=== PATIENT | female | born 1935 | race Caucasian/White ===

== ENCOUNTER → 2017-08-16 | Outpatient (CLI) | payer MEDICARE, OTHER | END | disposition home or self-care (01) | LOC: GMAH 10:48 | PROVIDERS: ATTEND Family Medicine | DX: E78.2 Mixed hyperlipidemia (principal) ==

== ENCOUNTER → 2017-08-17 | Outpatient (CLI) | payer MEDICARE, OTHER ==
--- NOTE | 2017-08-22 14:55 | MAM ---
EXAM DESCRIPTION: 3D Screening BILATERAL : Digital Mammography. CLINICAL HISTORY: 82 years Female SCREENING . No complaints. No family history breast cancer. No HRT.. COMPARISON: 2-D digital screening bilateral study on 04/03/2013. No prior reports available. TECHNIQUE: Bilateral CC and MLO projection full-field images, 3-D tomosynthesis digital mammographic technique. Also bilateral synthesized CC/ MLO full-field images. CAD not utilized. FINDINGS: The breast parenchymal density pattern is: Scattered areas of fibroglandular density. No skin thickening or nipple retraction bilateral solitary microcalcifications. Intramammary lymph nodes right breast. Retroareolar coarse calcification right breast. No focal, stellate mass or density, focal asymmetry , and no suspicious microcalcifications or laterally. Stable mammograms compared to prior study, taking into account differences in mammographic technique IMPRESSION: BI-RADS CATEGORY: 2 - BENIGN FINDINGS. FOLLOW UP: Routine digital bilateral screening, one year interval from August 2017. Written communication explaining the IMPRESSION and follow-up, will be mailed to the patient and referring health care provider. According to the [employer], yearly mammograms are recommended starting at age 40 and continuing as long as a woman is in good health. Any breast change noted on a breast self-exam should be reported promptly to the patient's healthcare provider. Breast MRI is recommended for women with an approximately 20-25% or greater lifetime risk of breast cancer, including women with a strong family history of breast or ovarian cancer and women who have been treated for Hodgkin's disease. A negative mammographic report should not delay tissue diagnosis in patients with significant clinical history or physical findings. Extremely dense breast tissue limits the sensitivity of digital mammography. Electronically signed by: Girish Hdz MD 08/22/2017 2:54 PM [facility]
== END ==
LOC: MAMMO 10:53
PROVIDERS: ATTEND Family Medicine
DX: Z12.31 Encounter for screening mammogram for malignant neoplasm of breast (principal)
CPT/HCPCS: 77063; G0202

== ENCOUNTER 2017-12-25 12:40 | Emergency (ER) | payer MEDICARE, OTHER ==
[2017-12-25 12:54] VITALS: TEMP 98.2
--- NOTE | 2017-12-25 13:25 | RAD ---
EXAM DESCRIPTION: Chest,2 Views CLINICAL HISTORY: 82 years Female, recurrent cough and sob COMPARISON: August 11, 2007 TECHNIQUE: PA lateral chest FINDINGS: Cardiac silhouette and mediastinum are unchanged. Increased markings have developed at the left base suspicious for pneumonitis. No other changes. IMPRESSION: Left basilar pneumonitis Electronically signed by: Kenneth Hilliard 12/25/2017 1:24 PM CDT
[2017-12-25] MEDS ORDERED: AZITHROMYCIN 250 MG TAB PO ONE (14:16)
[2017-12-25] MEDS ORDERED: predniSONE 20 MG TAB PO ONE (14:16)
--- NOTE | 2017-12-25 14:35 | ED.PDOC ---
History of Present Illness - General Chief Complaint: Respiratory Problem Stated Complaint: cough Time Seen by Provider: 12/25/17 12:45 Source: patient Exam Limitations: no limitations - History of Present Illness Initial Comments: the patient is a 82-year-old female presenting to the emergency room secondary to a coarse rattly cough starting approximately 3-4 days ago. She did have an x-ray and blood work done at the initial start of the symptoms. They were apparently reassuring with her primary care doctor. She was not placed on any medications at that time. Symptoms have progressed since that visit and the patient is coughing frequently with a minimally productive cough. No respiratory distress. No fevers. No real shortness of breath with activity. No runny nose. No sore throat. Chest x-ray done here today shows a questionable small left lower lung and infiltrate. This is compared to a chest x-ray from quite some time ago. Severity: moderate Improving Factors: nothing Worsening Factors: nothing Associated Symptoms: cough Allergies/Adverse Reactions: Allergies Amoxicillin Allergy (Verified 12/25/17 13:01) Ezetimibe [From Zetia] Allergy (Verified 12/25/17 13:01) Gentamicin Allergy (Verified 12/25/17 13:01) Ibuprofen [From Motrin] Allergy (Verified 12/25/17 13:01) Lovastatin [From Mevacor] Allergy (Verified 12/25/17 13:01) Povidone Iodine [From Betadine] Allergy (Verified 12/25/17 13:01) Statins Allergy (Verified 12/25/17 13:01) Verapamil Allergy (Verified 12/25/17 13:01) Home Medications: Ambulatory Orders Azithromycin 500 mg PO DAILY #5 tab 12/25/17 Clopidogrel Bisulfate [Plavix] 75 mg PO QD 12/25/17 predniSONE [Prednisone] 20 mg PO DAILY #5 tab 12/25/17 Review of Systems - Review of Systems Constitutional: States: no symptoms reported EENTM: States: no symptoms reported Respiratory: States: cough Cardiology: States: no symptoms reported Gastrointestinal/Abdominal: States: no symptoms reported Genitourinary: States: no symptoms reported Musculoskeletal: States: no symptoms reported Skin: States: no symptoms reported Neurological: States: no symptoms reported Endocrine: States: no symptoms reported All other Systems: No Change from Baseline Past Medical History (General) - Patient Medical History Surgical History: tonsillectomy, Hysterectomy, other - Vaccination History Hx Influenza Vaccination: Yes Hx Pneumococcal Vaccination: No - Social History Hx Tobacco Use: No Hx Alcohol Use: No Hx Substance Use: No Hx Substance Use Treatment: No Hx Depression: No Family Medical History - Family History Mother Family History: Unknown Physical Exam - Physical Exam General Appearance: Alert, Comfortable, No apparent distress Eye Exam: bilateral normal Ears, Nose, Throat: hearing grossly normal, normal ENT inspection Neck: full range of motion, supple Respiratory: no respiratory distress, no accessory muscle use, rhonchi Cardiovascular/Chest: normal peripheral pulses, regular rate, rhythm, no edema Peripheral Pulses: radial,right: 2+, radial,left: 2+, dorsalis pedis,right: 2+, dorsalis pedis,left: 2+ Gastrointestinal/Abdominal: non tender, soft Rectal Exam: deferred Back Exam: normal inspection, no CVA tenderness Extremity: normal range of motion, non-tender, normal inspection 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 the patient will be covered for possible bacterial sources with azithromycin and low-dose prednisone for the next 5 days. She is to follow-up with her primary care doctor later this week. Additionally the patient does report some long- standing hoarseness and chronic cough issues. An ear nose and throat evaluation may be warranted for evaluation of the vocal cords if the symptoms persist. ER warnings were given for any significant worsening. There is no hypoxia or respiratory distress here today. Lab work and chest x-ray otherwise look fairly reassuring. - Results/Orders Results/Orders: chest x-rays above Laboratory Last Values WBC 7.7 K/mm3 (4.8-10.8) 12/25/17 13:28 RBC 4.86 M/mm3 (4.20-5.40) 12/25/17 13:28 Hgb 14.3 gm/dL (12.0-16.0) 12/25/17 13:28 Hct 42.3 % (36.0-47.0) 12/25/17 13:28 MCV 86.9 fl (81.0-99.0) 12/25/17 13:28 MCH 29.4 pg (27.0-31.0) 12/25/17 13:28 MCHC 33.8 g/dL (33.0-37.0) 12/25/17 13:28 RDW 13.2 % (11.5-14.5) 12/25/17 13:28 Plt Count 206 K/mm3 (130-400) 12/25/17 13:28 MPV 7.9 fl (7.40-10.4) 12/25/17 13:28 Absolute Neuts (auto) 4.80 K/uL (1.8-6.8) 12/25/17 13:28 Absolute Lymphs (auto) 1.60 K/uL (1.0-3.4) 12/25/17 13:28 Absolute Monos (auto) 0.90 K/uL (0.2-0.8) H 12/25/17 13:28 Absolute Eos (auto) 0.30 K/uL (0.0-0.4) 12/25/17 13:28 Absolute Basos (auto) 0.10 K/uL (0.0-0.1) 12/25/17 13:28 Neutrophils % 62.4 % (42.0-78.0) 12/25/17 13:28 Lymphocytes % 20.8 % (20.0-50.0) 12/25/17 13:28 Monocytes % 12.2 % (2.0-9.0) H 12/25/17 13:28 Eosinophils % 3.3 % (1.0-5.0) 12/25/17 13:28 Basophils % 1.3 % (0.0-2.0) 12/25/17 13:28 D-Dimer, Quantitative < 230 ng/mL (0-230) 12/25/17 13:28 Sodium 133 mmol/L (135-145) L 12/25/17 13:28 Potassium 4.1 mmol/L (3.6-5.0) 12/25/17 13:28 Chloride 96 mmol/L (101-111) L 12/25/17 13:28 Carbon Dioxide 28 mmol/L (21-31) 12/25/17 13:28 Anion Gap 13.1 (12-18) 12/25/17 13:28 BUN 8 mg/dL (7-18) 12/25/17 13:28 Creatinine 0.54 mg/dL (0.6-1.3) L 12/25/17 13:28 BUN/Creatinine Ratio 14.8 (10-20) 12/25/17 13:28 Random Glucose 104 mg/dL (70-105) 12/25/17 13:28 Serum Osmolality 265.0 mOsm/L (275-295) L 12/25/17 13:28 Calcium 9.5 mg/dL (8.4-10.2) 12/25/17 13:28 Total Bilirubin 0.8 mg/dL (0.2-1.0) 12/25/17 13:28 AST 24 IU/L (10-42) 12/25/17 13:28 ALT 14 IU/L (10-60) 12/25/17 13:28 Alkaline Phosphatase 69 IU/L (42-121) 12/25/17 13:28 Creatine Kinase 146 IU/L (26-140) H 12/25/17 13:28 CK-MB (CK-2) 3.2 ng/mL (0.0-4.4) 12/25/17 13:28 CK-MB (CK-2) % Not Reportable 12/25/17 13:28 Troponin I < 0.02 ng/mL (0.01-0.05) 12/25/17 13:28 B-Natriuretic Peptide 30.0 pg/ml (0-100) 12/25/17 13:28 Serum Total Protein 7.8 gm/dL (6.4-8.2) 12/25/17 13:28 Albumin 4.3 g/dl (3.2-5.5) 12/25/17 13:28 Globulin 3.5 gm/dL (2.3-3.5) 12/25/17 13:28 Albumin/Globulin Ratio 1.2 (1.1-1.9) 12/25/17 13:28 Departure - Departure Clinical Impression: Acute bronchitis Qualifiers: Bronchitis organism: unspecified organism Qualified Code(s): J20.9 - Acute bronchitis, unspecified Disposition: Discharge to Home or Self Care Condition: Fair Departure Forms: ED Discharge - Pt. Copy, Patient Portal Self Enrollment Instructions: DI for Acute Bronchitis Diet: regular diet Activity: increase activity as tolerated Referrals: James Ann MD [Primary Care Provider] - 1-5 Days Prescriptions: Azithromycin 500 mg PO DAILY #5 tab predniSONE [Prednisone] 20 mg PO DAILY #5 tab Home Medications: Ambulatory Orders Azithromycin 500 mg PO DAILY #5 tab 12/25/17 Clopidogrel Bisulfate [Plavix] 75 mg PO QD 12/25/17 predniSONE [Prednisone] 20 mg PO DAILY #5 tab 12/25/17 Additional Instructions: the patient is an 82-year-old female presenting to the emergency room with what appears to be an acute bronchitis of uncertain origin. the patient will be covered for possible bacterial sources with azithromycin and low-dose prednisone for the next 5 days. She is to follow-up with her primary care doctor later this week. Additionally the patient does report some long- standing hoarseness and chronic cough issues. An ear nose and throat evaluation may be warranted for evaluation of the vocal cords if the symptoms persist. ER warnings were given for any significant worsening. There is no hypoxia or respiratory distress here today. Lab work and chest x-ray otherwise look fairly reassuring.
[2017-12-25 14:50] VITALS: BP 156/92; O2SAT 98
== END 2017-12-25 14:50 | disposition home or self-care (01) ==
LOC: ER 12:40
DX: J20.9 Acute bronchitis, unspecified (principal)
CPT/HCPCS: 36415; 71046; 80053; 82550; 82553; 83880; 84484; 85025; 85379; J7512; Q0144

== ENCOUNTER → 2018-08-21 | Outpatient (CLI) | payer MEDICARE, OTHER | LOC: GMAH 11:12 | PROVIDERS: ATTEND Family Medicine | DX: I10 Essential (primary) hypertension (principal); E78.2 Mixed hyperlipidemia ==

== ENCOUNTER → 2019-03-01 | Outpatient (CLI) | payer MEDICARE, OTHER ==
--- NOTE | 2019-03-01 11:01 | US ---
US HEAD NECK SOFT TISSUE CLINICAL STATEMENT: Thyroid nodule. No complaints. No prior thyroid surgery or therapy. COMPARISON: None TECHNIQUE: Transcutaneous scanning, grayscale and Doppler modes. FINDINGS: Size right thyroid lobe: 4.2 x 1.9 x 1.8 cm Size left thyroid lobe: 4.2 x 1.5 x 1.3 cm Size isthmus: 0.26 cm Estimated total number of nodules greater than or equal to 1 cm: 2 Nodule 1: Size: 1.1 x 1.3 x 0.8 cm Location: Right Mid Composition: cystic or completely cystic: 0 points Echogenicity: anechoic: 0 points Shape: taller than wide: 3 points Margins: smooth: 0 points Echogenic foci: none: 0 points ACR Total Points: 3; ACR TI-RADS risk category: TR3 - mildly suspicious nodule. Nodule 2: Size: 1.0 x 1.0 x 0.4 cm Location: Isthmus Mid Composition: solid or almost completely solid: 2 points Echogenicity: hypoechoic: 2 points Shape: wider than tall: 0 points Margins: smooth: 0 points Echogenic foci: none: 0 points ACR Total Points: 4; ACR TI-RADS risk category: TR4 - moderately suspicious nodule. Nodule 3: Size: 0.9 x 0.7 x 0.6 cm Location: Left Upper Composition: cystic or completely cystic: 0 points Echogenicity: hypoechoic: 2 points Shape: wider than tall: 0 points Margins: smooth: 0 points Echogenic foci: none: 0 points ACR Total Points: 2; ACR TI-RADS risk category: TR2 - nonsuspicious nodule. Nodule 4: Size: 0.7 x 0.6 x 0.4 cm Location: Right Mid Composition: solid or almost completely solid: 2 points Echogenicity: hypoechoic: 2 points Shape: wider than tall: 0 points Margins: smooth: 0 points Echogenic foci: large comet tail artefact: 0 points ACR Total Points: 4; ACR TI-RADS risk category: TR4 - moderately suspicious nodule. The soft tissue around the thyroid gland shows no evidence of dominant solid mass or distinct cyst. No parenchymal edema or large calcifications. No overlying skin changes. Normal vascularity. IMPRESSION: 1. Nodule 1: ACR TI-RADS 2017 Category TR3. Recommend: No further follow-up.. Recommendations based upon [employer] Best Practice recommendations and ACR TI-RADS 2017 guidelines. Please see below*. 2. Nodule 2: ACR TI-RADS 2017 Category TR4. Recommend: Follow-up ultrasound in 1 year. 3. Nodule 3: ACR TI-RADS 2017 Category TR2. Recommend: No further follow-up. 4. Nodule 4: ACR TI-RADS 2017 Category TR4. Recommend: No further follow-up. Soft tissue around the thyroid gland is unremarkable. *ACR TI-RADS 2017 Recommendations: TR1: No FNA or follow up TR2: No FNA or follow up TR3: FNA if >/= 2.5 cm, follow up if 1.5 - 2.4 cm in 1, 3, and 5 years TR4: FNA if >/= 1.5 cm, follow up if 1.0 - 1.4 cm in 1, 2, 3, and 5 years TR5: FNA if >/= 1.0 cm, follow up if 0.5 - 0.9 cm every year for 5 years ACR TI-RADS recommends that no more than two nodules with the highest ACR TI-RADS total point should be biopsied and no more than four nodules should be followed. These recommendations do not apply to patients with increased risk for thyroid cancer or patients with symptomatic thyroid disease. Electronically signed by: Girish Hdz MD 03/01/2019 10:59 AM CDT
== END ==
LOC: US 09:00
PROVIDERS: ATTEND Family Medicine
DX: E04.2 Nontoxic multinodular goiter (principal)

== ENCOUNTER → 2020-05-19 | Outpatient (CLI) | payer MEDICARE, OTHER | LOC: GMA MATASK 16:43 | PROVIDERS: ATTEND Family Medicine | DX: I10 Essential (primary) hypertension (principal) ==

== ENCOUNTER → 2020-08-06 | Outpatient (CLI) | payer MEDICARE, OTHER | LOC: GMA MATASK 14:34 | PROVIDERS: ATTEND Family Medicine | DX: R30.0 Dysuria (principal) ==

== ENCOUNTER → 2020-08-20 | Outpatient (CLI) | payer MEDICARE, OTHER ==
--- NOTE | 2020-08-21 07:38 | US ---
EXAM DESCRIPTION: Gall Bladder: ULTRASOUND. CLINICAL HISTORY: RUQ ABD PAIN GALLSTONES COMPARISON: None. TECHNIQUE: Transabdominal scanning: Shannon-scale and Doppler modes. FINDINGS: Gallbladder: Normal size without focal wall thickening ranging from 5.1 to 8.1 mm. Large echogenic stone with acoustic shadowing measuring 2 cm. No fluid around the gallbladder. Borderline diffuse wall thickening 3.0 mm Non-tender with transducer pressure. Common bile duct: caliber 4.8 mm within normal limits. Liver: normal echogenicity; contour liver capsule smooth where seen. No fluid around the liver. Intrahepatic biliary ducts normal caliber. Doppler hepatopedal flow portal vein.. 7.2 mm normal caliber portal vein. Long axis right lobe 14.4 cm. Pancreas: normal size Normal echogenicity. Duct not seen. Aorta: 1.8 cm normal caliber. Right kidney: long axis is 9.8 cm.; volume 110.5. [place]. Cortical thickness 11 mm. Physiologic cortical echogenicity. Endoleak complex appearing cyst in the lower pole with internal echogenic septa and contents. Peripheral vascularity. Dimensions 6.1 x 5.0 x 4.6 cm. IMPRESSION: 1. Multiple polyps in the gallbladder with sludge and 2.1 cm stone. Borderline wall thickening. Nontender with transducer pressure. Common bile duct not dilated. 2. Right kidney with complex cystic mass lower pole 6.1 cm greatest diameter. Consider CT scan without and with IV contrast if tolerated by patient or MRI scan with contrast. Urologic consult. 3. Liver and pancreas are unremarkable. Normal caliber of the proximal abdominal aorta. Electronically signed by: Girish Hdz MD 08/21/2020 7:37 AM [facility]
== END ==
LOC: US 08:30
PROVIDERS: ATTEND Family Medicine
DX: K80.20 Calculus of gallbladder without cholecystitis without obstruction (principal); N28.9 Disorder of kidney and ureter, unspecified